=== PATIENT | female | born 2000 | race Two or more races ===

== ENCOUNTER 2020-07-22 18:48 | Outpatient (REF) | payer OTHER, SELFPAY ==
[2020-07-22 19:30] LABS: COVID-19 Test Negative (Negative); IDNOW Serial# 9DD0AD1C
== END 2020-07-22 18:49 | disposition home or self-care (01) ==
LOC: HO.EMPCOV 18:48
PROVIDERS: Visit Provider Internal Medicine
DX: Z20.828 Contact with and (suspected) exposure to other viral communicable diseases (principal)
CPT/HCPCS: 87635

== ENCOUNTER → 2021-03-14 08:28 | Outpatient (BNVA) | payer SELFPAY | DX: Z76.89 Persons encountering health services in other specified circumstances (principal) ==

== ENCOUNTER → 2021-08-20 13:11 | Outpatient (BNVA) | payer SELFPAY | DX: Z11.1 Encounter for screening for respiratory tuberculosis (principal) ==

== ENCOUNTER → 2021-08-27 11:39 | Outpatient (BNVA) | payer SELFPAY | DX: Z11.1 Encounter for screening for respiratory tuberculosis (principal) ==

== ENCOUNTER → 2022-05-13 09:16 | Outpatient (RCR) | payer OTHER, SELFPAY ==
[2020-06-05 07:22] LABS: COVID-19 Test Negative (Negative)
[2020-06-12 13:53] LABS: COVID-19 Test Negative (Negative)
[2020-06-24 14:09] LABS: COVID-19 Test Negative (Negative)
== END | disposition home or self-care (01) ==
LOC: HO.EMPCOV 06-05 06:57
PROVIDERS: Visit Provider Internal Medicine
DX: Z20.828 Contact with and (suspected) exposure to other viral communicable diseases (principal)
CPT/HCPCS: 87635; C9803